=== PATIENT | male | born 1950 | race Hispanic/Latino ===

== ENCOUNTER → 2024-12-14 | Outpatient (REF) | payer MEDICARE ==
[~2024-12-14] MED LIST: ALFUZOSIN HCL10 MG; DOXAZOSIN MESYLA2 MG PO; FISH OIL 1,0001 EAC7 PO; IOPAMIDOL 370 MG/ML 100 ML INFUS..BTL INJ ONE; LACTULOSE20 GM/30 M PO; LEVOTHYROXINE75 MCG PO; LIPITOR10 MG PO; MAGNESIUM OXID400 MG PO; METAMUCIL FIBE3.4 GM PO; MYRBETRIQ25 MG PO; MYSOLINE50 MG PO; PANTOPRAZOLE SO40 MG PO; SODIUM CHLORIDE 0.9% 250ML 250 ML ONE; TYLENOL EXTRA500 MG PO; VIT D PO; VIT D3 PO
== END ==
LOC: CT 10:53
PROVIDERS: ATTEND Urology
DX: R31.21 Asymptomatic microscopic hematuria (principal)
CPT/HCPCS: 74178; J7050; Q9967

== ENCOUNTER 2025-02-16 15:43 | Inpatient (IN) | payer MEDICARE ==
[~2025-02-16] VITALS: Ht 162.6 cm; Wt 71.3 kg
[~2025-02-16 15:43] MED LIST changes: +CELEBREX200 MG PO; +CIPRO500 MG PO; -IOPAMIDOL 370 MG/ML 100 ML INFUS..BTL INJ ONE; -SODIUM CHLORIDE 0.9% 250ML 250 ML ONE
[2025-02-16 16:19] LABS: BASOPHILS % 0.0 % (0.0-1.0); EOSINOPHILS % 0.2 % (0.0-6.0); LYMPHOCYTES % 7.2 % (18.0-39.1); MONOCYTES % 0.6 % (4.4-11.3); NEUTROPHILS % 91.6 % (38.7-80.0); RED CELL DISTRIBUTION WIDTH 12.2 % (11.7-14.4)
[2025-02-16] MEDS: ONDANSETRON HCL INJ 2MG/ML 2ML 2 MG/ML VIAL IV STA (16:34)
[2025-02-16] MEDS: SODIUM CHLORIDE 0.9% 1000ML 1,000 ML IV ONE (16:35)
[2025-02-16] MEDS: Morphine 4mg INJECTION 4 MG/ML INJ IV ONE (16:37)
[2025-02-16 16:41] LABS: EST GLOMERULAR FILTRATION RATE 71.0 ML/MIN (>=60)
[2025-02-16 17:13] LABS: LEUKOCYTE ESTERASE ,URINE SMALL (NEGATIVE); PROTEIN,URINE DIPSTICK NEGATIVE (NEGATIVE); URINE UROBILINOGEN 0.2 mg/dL (0.2 - 1)
[2025-02-16 17:17] LABS: WBC,URINE (MAN) 0-5 /HPF (0-5)
[2025-02-16 17:18] LABS: EPITHELIAL CELLS,URINE FEW /LPF
[2025-02-16] MEDS ORDERED: IOPAMIDOL 370 MG/ML 100 ML INFUS..BTL INJ ONE (17:23)
[2025-02-16] MEDS ORDERED: SODIUM CHLORIDE FLUSH 10 ML SYR INJ PRN (18:30)
[2025-02-16] MEDS: SODIUM CHLORIDE 0.9% 1000ML 1,000 ML IV SCH (18:51)
[2025-02-16 19:24] VITALS: PULSE 99; TEMP 101.1
[2025-02-16] MEDS ORDERED: ACETAMINOPHEN 325 MG TAB ONE (19:33)
[2025-02-16] MEDS ORDERED: LABETALOL HCL 5 MG/ML 20ML VIAL IV PRN (19:45)
[2025-02-16] MEDS ORDERED: ACETAMINOPHEN 325 MG TAB PO PRN (19:45)
[2025-02-16] MEDS ORDERED: POLYETHYLENE GLYCOL 3350 17 GM PACK PO PRN (19:45)
[2025-02-16 20:29] VITALS: BP 127/76; PULSE 110; RESP 21; TEMP 100.5; O2SAT 98
[2025-02-16] MEDS ORDERED: MYSOLINE50 MG (20:52)
[2025-02-16 21:00] VITALS: BP 127/76; PULSE 100; RESP 18; TEMP 100.5; O2SAT 96
[2025-02-16] MEDS ORDERED: VENTOLIN HFA18 GM INH (21:03)
[2025-02-16 22:27] VITALS: BP 127/76; PULSE 100; RESP 18; TEMP 100.5; O2SAT 96
[2025-02-16] MEDS ORDERED: ALBUTEROL 90 MCG/ACT INHALER INH PRN (23:00)
[2025-02-16 23:45] VITALS: BP 103/66; PULSE 108; RESP 19; TEMP 97.9; O2SAT 96
[2025-02-17] VITALS (11 sets, daily range): BP systolic 91–128; BP diastolic 61–73; PULSE 76–108; RESP 16–22; TEMP 97.4–98.1; O2SAT 95–100
[2025-02-17] MEDS: Morphine 4mg INJECTION 4 MG/ML INJ IV PRN (00:17)
[2025-02-17] MEDS: ATORVASTATIN 40 MG TAB PO SCH (00:17)
[2025-02-17 05:53] LABS: BASOPHILS % 0.3 % (0.0-1.0); EOSINOPHILS % 0.2 % (0.0-6.0); LYMPHOCYTES % 1.1 % (18.0-39.1); MONOCYTES % 4.8 % (4.4-11.3); NEUTROPHILS % 91.5 % (38.7-80.0); RED CELL DISTRIBUTION WIDTH 12.6 % (11.7-14.4)
[2025-02-17 06:18] LABS: EST GLOMERULAR FILTRATION RATE 39.0 ML/MIN (>=60)
[2025-02-17 06:34] LABS: CHOL/HDL RATIO 4.0 (3.9-4.7); LDL CHOLESTEROL 84.0 MG/DL (60-130); PHOSPHORUS 2.7 MG/DL (2.3-4.7)
[2025-02-17] MEDS: PANTOPRAZOLE SOD 40 MG TABEC PO SCH (07:30)
[2025-02-17] MEDS: LEVOTHYROXINE SODIUM 75 MCG TAB PO SCH (07:30)
[2025-02-17] MEDS: PRIMIDONE 50 MG TAB PO SCH (07:34)
[2025-02-17] MEDS: DOCUSATE SODIUM 100 MG CAP PO SCH (07:34)
[2025-02-17] MEDS: ALFUZOSIN HCL 10 MG TAB.ER.24H PO SCH (07:34)
[2025-02-17] MEDS: ACETAMINOPHEN 325 MG TAB PO ONE (07:34)
[2025-02-17] MEDS: OMEGA 3 POLYUNSAT FATTY ACIDS 1000 MG SOFTGEL PO SCH (07:34)
[2025-02-17] MEDS: POTASSIUM CHLORIDE 20MEQ/100ML 200 ML IV ONE (10:02)
[2025-02-17 10:56] LABS: BAND NEUTROPHILS % (MANUAL) 12 %; LYMPHOCYTES % (MANUAL) 3 % (19-48); MONOCYTES % (MANUAL) 4 % (3.4-9.0); NEUTROPHILS % (MANUAL) 81 % (40-74)
[2025-02-17 10:57] LABS: PLATELET ESTIMATE SLIGHTLY DECREASED; PLATELET MORPHOLOGY COMMENT NORMAL; RBC MORPHOLOGY COMMENT NORMAL
[2025-02-17] MEDS: ONDANSETRON HCL INJ 2MG/ML 2ML 2 MG/ML VIAL IV PRN (17:51)
[2025-02-18] VITALS (11 sets, daily range): BP systolic 105–139; BP diastolic 64–80; PULSE 62–88; RESP 16–20; TEMP 97.3–98.3; O2SAT 94–100
[2025-02-18 05:40] LABS: BASOPHILS % 0.1 % (0.0-1.0); EOSINOPHILS % 0.0 % (0.0-6.0); LYMPHOCYTES % 3.3 % (18.0-39.1); MONOCYTES % 4.7 % (4.4-11.3); NEUTROPHILS % 84.3 % (38.7-80.0); RED CELL DISTRIBUTION WIDTH 12.5 % (11.7-14.4)
[2025-02-18 06:09] LABS: EST GLOMERULAR FILTRATION RATE 52.0 ML/MIN (>=60)
[2025-02-18 08:05] LABS: BAND NEUTROPHILS % (MANUAL) 1 %; EOSINOPHILS % (MANUAL) 1 % (0-7); LYMPHOCYTES % (MANUAL) 4 % (19-48); MONOCYTES % (MANUAL) 3 % (3.4-9.0); NEUTROPHILS % (MANUAL) 90 % (40-74); PLATELET ESTIMATE MODERATELY DECREASED; PLATELET MORPHOLOGY COMMENT NORMAL; RBC MORPHOLOGY COMMENT NORMAL; REACTIVE LYMPHOCYTES 1
[2025-02-18] MEDS: POTASSIUM CHLORIDE 10MEQ EA PO ONE (08:52)
[2025-02-19] VITALS (7 sets, daily range): BP systolic 112–139; BP diastolic 75–88; PULSE 61–70; RESP 16–18; TEMP 97.8–98.2; O2SAT 96–100
[2025-02-19 06:01] LABS: BASOPHILS % 0.2 % (0.0-1.0); EOSINOPHILS % 0.2 % (0.0-6.0); LYMPHOCYTES % 7.5 % (18.0-39.1); MONOCYTES % 5.9 % (4.4-11.3); NEUTROPHILS % 84.8 % (38.7-80.0); RED CELL DISTRIBUTION WIDTH 12.1 % (11.7-14.4)
[2025-02-19 06:26] LABS: EST GLOMERULAR FILTRATION RATE 91.0 ML/MIN (>=60)
[2025-02-19 08:31] LABS: LYMPHOCYTES % (MANUAL) 8 % (19-48); MONOCYTES % (MANUAL) 1 % (3.4-9.0); NEUTROPHILS % (MANUAL) 90 % (40-74); PLATELET ESTIMATE MODERATELY DECREASED; PLATELET MORPHOLOGY COMMENT NORMAL; RBC MORPHOLOGY COMMENT NORMAL; REACTIVE LYMPHOCYTES 1
[2025-02-19] MEDS: POTASSIUM CHLORIDE 10MEQ EA PO ONE (09:19)
[2025-02-19] MEDS ORDERED: CEFUROXIME250 MG PO (15:38)
== END 2025-02-19 17:20 | disposition home or self-care (01) | DRG 690 ==
LOC: ER 16:05 → ERHOLD 18:27 → MED/SURG3 20:19 → OBSVTOIN 02-17 09:02 → MED/SURG2 02-18 16:23
PROVIDERS: ADMIT Internal Medicine; ATTEND Internal Medicine
DX: N13.6 Pyonephrosis (principal); D69.59 Other secondary thrombocytopenia; E11.9 Type 2 diabetes mellitus without complications; N17.9 Acute kidney failure, unspecified; E03.9 Hypothyroidism, unspecified; B96.1 Klebsiella pneumoniae [K. pneumoniae] as the cause of diseases classified elsewhere; R19.09 Other intra-abdominal and pelvic swelling, mass and lump; E86.0 Dehydration; E87.6 Hypokalemia; E78.49 Other hyperlipidemia; Z79.890 Hormone replacement therapy
CPT/HCPCS: 36415; 74018; 74177; 80048; 80053; 80061; 81001; 82948; 83036; 83690; 83735; 84100; 84439; 84443; 85025; 87086; 87186; 88300; 94799; 99284; G0378; J0696; J2270; J2405; J2470; J3480; J7030; Q9967

== ENCOUNTER → 2025-03-21 | Outpatient (REF) | payer MEDICARE ==
[~2025-03-21] MED LIST changes: +CEFUROXIME250 MG PO; +MYSOLINE50 MG; +VENTOLIN HFA18 GM INH
== END ==
LOC: RAD 15:08
PROVIDERS: ATTEND Urology
DX: N20.0 Calculus of kidney (principal)
CPT/HCPCS: 74018